=== PATIENT | female | born 1980 | race Caucasian/White ===

== ENCOUNTER 2016-11-12 13:43 | Emergency (ER) | payer MEDICAID ==
[~2016-11-12] VITALS: Wt 73.0 kg
[~2016-11-12 13:43] MED LIST: PREN1TAB49 PO
[2016-11-12] MEDS ORDERED: KETOROLAC 30 MG INJ IM STA (14:58)
--- NOTE | 2016-11-12 15:51 | RADRPT ---
PROCEDURE: US Lower extremity Venous. CLINICAL INDICATION: Left leg edema TECHNIQUE: Multiple sonographic images of the left lower extremity deep venous system was obtained utilizing grayscale, color-flow, compressive sonography and doppler imaging with augmentation. The images were reviewed on a PACS workstation. COMPARISON: None. FINDINGS: There is normal compressibility and flow within the left common femoral, femoral, posterior tibial, peroneal and popliteal veins. RPTAT: AA IMPRESSION: No sonographic evidence for deep venous thrombosis. .Ruben Cruz MD, MD Date Time Electronically viewed and signed by .Ruben Cruz MD, on 11/12/2016 15:50 .S/
[2016-11-12] MEDS ORDERED: CYCL-319 PO (16:03)
[2016-11-12] MEDS ORDERED: NAPR-260 PO (16:04)
[2016-11-12 16:15] VITALS: BP 124/78; PULSE 72; RESP 18; TEMP 98.2
--- NOTE | 2016-11-12 16:43 | ERD ---
ER Documentation Chief Complaint Date/Time DATE: 11/12/16 TIME: 16:39 Chief Complaint left leg x 1 week HPI This patient is a 35-year-old female with no significant medical history presenting to the emergency department with left calf pain which radiates up to her low back ongoing for the past 6 days. Symptoms are worsening. She describes the pain as sharp and it is associated with swelling. Exacerbating factors include walking. The patient denies recent travel, oral contraceptive use, smoking cigarettes, falls, trauma, fevers, chills, or other symptoms. ROS All systems reviewed and are negative except as per history of present illness. Medications Home Meds Active Scripts Naproxen* (Naprosyn*) 500 Mg Tablet, 500 MG PO BID Y for PAIN AND/OR INFLAMMATION, #30 TAB Prov:MARIETTA TILLMAN PA-C 11/12/16 Cyclobenzaprine Hcl* (Cyclobenzaprine Hcl*) 10 Mg Tablet, 10 MG PO TID, #15 TAB Prov:MARIETTA TILLMAN PA-C 11/12/16 Reported Medications Vits W-Ca,Fe,Fa(<1MG) () 1 Tab Tablet, 1 TAB PO DAILY 09/28/12 Allergies Allergies: Coded Allergies: No Known Allergy (Unverified , 11/12/16) PMhx/Soc Medical and Surgical Hx: pt denies Medical Hx, pt denies Surgical Hx Hx Alcohol Use: No Hx Substance Use: No Hx Tobacco Use: No Smoking Status: Never smoker FmHx Noncontributory for chief complaint Physical Exam Vitals Vital Signs Date Time Temp Pulse Resp B/P Pulse Ox O2 Delivery O2 Flow Rate FiO2 11/12/16 16:15 98.2 72 18 124/78 98 Room Air 11/12/16 13:46 98.4 75 18 133/75 99 Physical Exam Const: Nontoxic, well-appearing female in no acute distress. Head: Atraumatic Eyes: Normal Conjunctiva ENT: Normal External Ears, Nose and Mouth. Neck: Full range of motion..~ No meningismus. Resp: Clear to auscultation bilaterally Cardio: Regular rate and rhythm, no murmurs Abd: Soft, non tender, non distended. Normal bowel sounds Skin: No petechiae or rashes Back: No midline or flank tenderness Ext: Examination of the left lower extremity shows some tenderness to palpation of the calf muscle. Negative Gordon's test. 2+ pedal pulses. No cyanosis noted. Slight swelling of the left lower extremity in comparison to the right but not significant. Neur: Awake and alert Psych: Normal Mood and Affect Results 24 hrs Current Medications Medications (Trade) Dose Ordered Sig/Brigette Route PRN Reason Start Time Stop Time Status Last Admin Dose Admin Ketorolac Tromethamine (Toradol) 30 mg ONCE STAT IM 11/12/16 14:58 11/12/16 14:59 DC 11/12/16 15:12 [place] [id number] Radiology Main Line: [phone] DIAGNOSTIC IMAGING REPORT Patient: KAYLENE CARTER : 1980 Age: 35 Sex: F MR #: [id number] DOS: 11/12/16 0000 Ordering MD: MARIETTA TILLMAN PA-C Location: [facility] Room/Bed: PROCEDURE: US Lower extremity Venous. CLINICAL INDICATION: Left leg edema TECHNIQUE: Multiple sonographic images of the left lower extremity deep venous system was obtained utilizing grayscale, color-flow, compressive sonography and doppler imaging with augmentation. The images were reviewed on a PACS workstation. COMPARISON: None. FINDINGS: There is normal compressibility and flow within the left common femoral, femoral , posterior tibial, peroneal and popliteal veins. RPTAT: AA IMPRESSION: No sonographic evidence for deep venous thrombosis. .Ruben Cruz MD, MD Date Time Electronically viewed and signed by .Ruben rCuz MD, MD on 11/12/2016 15: 50 .S/ CC: MARIETTA TILLMAN PA-C Procedures/MDM 35-year-old female presents for pain and swelling of her left lower extremity. On physical examination there is some tenderness palpation of the left calf. Negative Gordon's test. The left lower extremity is slightly increased in size compared to the right. Venous Doppler of the left lower extremity showed no sonographic evidence for deep venous thrombosis. After receiving results and considering history and clinical examination I believe that the patient's symptoms are most likely secondary to musculoskeletal etiology. The patient had no trauma and I do not feel that x-rays are required to make a diagnosis at this time. The patient has no specific point tenderness just generalized tenderness of the left lower extremity and she states she does a significant amount of running and weightlifting and her symptoms may be secondary to a muscle strain. The patient is stable for outpatient management with a prescription for Flexeril and naproxen. All questions and concerns were addressed. I low suspicion for fracture, DVT, septicemia, or other emergent conditions. Close follow-up with primary care physician advised. Strict ER return precautions were discussed. Departure Diagnosis: Primary Impression: Pain of left leg Additional Impression: Muscle strain, lower leg Condition: Fair Patient Instructions: Muscle Strain, Extremity Referrals: [facility] YOU HAVE RECEIVED A MEDICAL SCREENING EXAM AND THE RESULTS INDICATE THAT YOU DO NOT HAVE A CONDITION THAT REQUIRES URGENT TREATMENT IN THE EMERGENCY DEPARTMENT. FURTHER EVALUATION AND TREATMENT OF YOUR CONDITION CAN WAIT UNTIL YOU ARE SEEN IN YOUR DOCTORS OFFICE WITHIN THE NEXT 1-2 DAYS. IT IS YOUR RESPONSIBILITY TO MAKE AN APPOINTMENT FOR [facility]. IF YOU HAVE A PRIMARY DOCTOR --you should call your primary doctor and schedule an appointment IF YOU DO NOT HAVE A PRIMARY DOCTOR YOU CAN CALL OUR PHYSICIAN REFERRAL HOTLINE AT IF YOU CAN NOT AFFORD TO SEE A PHYSICIAN YOU CAN CHOSE FROM THE FOLLOWING [facility] [address] [facility]. [facility] [address] [facility] [facility] [facility] [address] [facility] [address] [facility]. [facility] [address] [facility]. [facility]. [address] Additional Instructions: Follow up with your PCP within the next 1-3 days for a repeat evaluation and a possible referral to a specialist, if required. Return the the emergency department immediately if symptoms worsen or change. If you have any questions regarding medications, ask your pharmacist or us before you leave. If any adverse reactions, occur while taking your medications, discontinue the treatment and return to the emergency department immediately. If any new or worsening symptoms, uncontrolled fevers, or other unexplained symptoms occur, return to the emergency department immediately. Take your medications as directed, and complete the entire course of treatment. MARIETTA TILLMAN PA-C Nov 12, 2016 16:43
== END 2016-11-12 16:16 | disposition home or self-care (01) ==
LOC: FTE 13:43
DX: M79.605 Pain in left leg (principal)
CPT/HCPCS: 93971; J1885; 96372